=== PATIENT | male | born 1950 | race Caucasian/White ===

== ENCOUNTER 2023-10-01 14:01 | Emergency (ER) | payer OTHER, SELFPAY ==
[2023-10-01 14:06] VITALS: BP 163/81
--- NOTE | 2023-10-01 15:49 | ED.SKININJ ---
HPI-Injury
General
Chief Complaint: Skin Surface Trauma
Source: patient
Exam Limitations: none
Time Seen by Provider: 10/01/23 15:05
Nursing documentation reviewed up to this point in time: agreed with
History of Present Illness-Injury
Is this injury a work related problem?: No
Is pt an associate of [facility]?: No
Initial Injury comments:
Accidentally cut finger while cutting wound. Has lac to lateral aspect left 5th finger. Injury occurred just LITIGATION ASSISTANT
Past History
Past History
ED Past Medical History: None
ED Past Surgical History: None
Review of Systems
Review of Systems
Allergies reviewed?: Yes
All Other Systems: ROS reviewed and negative except as documented in HPI and ROS
Constitutional: Reports no symptoms
Musculoskeletal: Reports no symptoms
Skin: Reports no symptoms (laceration to left lateral 5th finger. Subungal hematoma)
Psychiatric: Reports no symptoms
Skin Exam
Laceration
Left Lateral Fifth Finger:
Length in cm: 2.5
Orientation: diagonal
Type of Laceration: simple
Any active bleeding?: low grade venous oozing
Distal skin color and temperature: normal-warm & good color
Normal distal neurovascular exam: Yes
Range of motion: full
Phy Exam
General Physical Exam
General Presentation: well appearing and no apparent distress
General age: appears stated age
General Skin: warm and dry
General Habitus: normal
General Mental: alert
Musculoskeletal Exam
Musculoskeletal Exam: full ROM and neuro vasc intact
Skin Exam
Skin Exam: normal color, warm/dry and no rash
Psychiatric Exam
Psychiatric Exam: normal mood/affect
Course
Orders/Labs/Results
Orders:
Orders
10/01/23 15:45
Cephalexin Monohydrate [Keflex] 500 mg PO NOW STA
Vital Signs
Initial and Last Documented VS:
Initial Vital Signs
Temp Pulse Resp BP Pulse Ox
98.8 F 69 18 163/81 98
10/01/23 14:06 10/01/23 14:06 10/01/23 14:06 10/01/23 14:06 10/01/23 14:06
Last Documented Vital Signs
Temp Pulse Resp BP Pulse Ox
98.8 F 69 18 163/81 98
10/01/23 14:06 10/01/23 14:06 10/01/23 14:06 10/01/23 14:06 10/01/23 14:06
Procedures
Laceration Closure
Left Lateral Fifth Finger:
Status of Wound: clean
Description of Wound Edges: sharp
Preparation: cleaned with saline and cleaned with Betadine
Anesthesia: 1% Lidocaine and Digital-Regional
Revision/Debridement: routine- no revision
Wound exploration: explored to base- no FB and no tendon involvement
Type of Closure: single layer closure
Skin Closure Material: 5-0 prolene
Nail Trepanation/Felon
Method of Drainage: nail cauterized
Sterile dressing applied: Yes
Finger splint applied: No
*Critical Care Note
Total Time (30-74mins, 75-104mins- exclusive of procedures): Not Applicable
ED Attending Note
-
Portions of this chart may have been created with voice recognition software.� Occasional wrong word or��sound alike� substitutions may have occurred due to the inherent limitations of voice recognition software.
Discharge Plan
Departure
Patient Disposition: Home (Routine Discharge)
Date of Disposition: 10/01/23
Time of Disposition: 15:46
Patient with high blood pressure during this ER visit?: No
Condition: Good
Covid-19: Not Applicable
Discharge Problem:
Finger laceration
Instructions: Laceration Repair With Stitches (DC)
Prescriptions:
New
cephalexin 500 mg capsule
500 mg PO BID 7 Days Qty: 14 0RF
Activity Restrictions/Additional Instructions:
Sutures can be removedin 7-10 days by your family doctor. Leave tape strips on until the fall off on own or your sutures are ready for removal. Tape strips can get wet in the shower.
Interventions
Interventions:
ED-Skin Assessment Last Done: 10/01/23 15:52
Discharge Date and Time
Print Language: HUNGARIAN
[2023-10-01] MEDS: KEFLEX 500 MG PO (15:51)
== END 2023-10-01 15:58 | disposition home or self-care (01) ==
LOC: EMR 14:01
PROVIDERS: EMERGENCY PHYSICIAN Emergency Medicine
DX: S61.217A Laceration without foreign body of left little finger without damage to nail, initial encounter (principal); W31.2XXA Contact with powered woodworking and forming machines, initial encounter
CPT/HCPCS: 99282; 12001

== ENCOUNTER 2023-12-21 20:56 | Inpatient (IN) | payer OTHER, SELFPAY ==
[2023-12-21] VITALS (9 sets, daily range): BP systolic 99–137; BP diastolic 60–88; BMI 25.5; BMI 28.2
[2023-12-21] MEDS: TYLENOL 650 MG PO ×2 (15:53→23:00)
[2023-12-21 16:13] LABS: Hematocrit 37.6 % (39.0-52.0); Hemoglobin 13.2 g/dL (13.0-18.0); Mean Corp Hgb Conc. 35.1 g/dL (33.0-37.0); Mean Corpuscular Hgb 29.9 pg (27.0-31.0); Mean Corpuscular Volume 85.3 fL (80.0-94.0); Mean Platelet Volume 9.4 fL (7.4-10.4); Platelet Count 193 10^3/uL (130-400); Red Blood Cell Count 4.41 10^6/uL (4.70-6.10); Red Cell Dist. Width 14.6 % (11.5-14.5); White Blood Cell Count 8.2 10^3/uL (4.8-10.8)
[2023-12-21 16:17] LABS: Erythrocyte Sed Rate 38 mm/hour (0-20)
[2023-12-21 16:24] LABS: ALT (SGPT) 103 U/L (0-50); AST (SGOT) 69 U/L (17-59); Albumin 3.9 g/dl (3.5-5.0); Alkaline Phosphatase 80 U/L (38-126); Blood Urea Nitrogen 18 mg/dl (9-20); Calcium 8.6 mg/dl (8.4-10.2); Carbon Dioxide 21 mmol/L (22-30); Chloride 100 mmol/L (98-107); Glucose 141 mg/dl (70-99); Potassium 4.3 mmol/L (3.5-5.1); Sodium 134 mmol/L (135-145); Total Protein 7.2 g/dl (6.3-8.2); eGFR > 60.00
[2023-12-21 16:25] LABS: Lactic Acid 1.5 mmol/L (0.7-2.0)
[2023-12-21 16:41] LABS: COVID-19 Antigen Negative (Negative)
--- NOTE | 2023-12-21 16:45 | ED.GENMED ---
History of Present Illness
General
Chief Complaint: Fatigue
Source: patient
Exam Limitations: none
Time Seen by Provider: 12/21/23 16:33
History of Present Illness
History of Present Illness:
73-year-old male started not feeling well 2 weeks ago. General fatigue and weakness. Some chills intermittently. Symptoms became worse today. No focal infectious symptoms. Denies cough congestion abdominal pain urinary symptoms rash etc. No
documented fever at home although had had chills
Past History
Past History
ED Past Medical History: None
ED Past Surgical History: Orthopedic
Review of Systems
Review of Systems
All Other Systems: Not applicable
Respiratory: Reports no symptoms
Cardiac: Reports no symptoms
ABD/GI: Reports no symptoms
: Reports no symptoms
Phy Exam
Physical Exam
Physical Exam:
GENERAL: Alert and oriented in no apparent distress
EYE: Orbits normal.
NECK: Supple, no significant adenopathy.
ENT: Pharynx without erythema
CARDIAC: Regular rate and rhythm without any obvious murmurs.
LUNGS: Clear breath sounds,normal
ABDOMEN: Soft, without focal tenderness or distention
NEUROLOGICAL: Alert and oriented , grossly non-focal
SKIN: Warm and dry, no rash or lesion, no discoloration, skin intact.
MUSCULOSKELETAL: No edema,no deformity.Good color
PSYCH: Normal and appropriate interaction.
Course
Orders/Labs/Results
Orders:
Orders
12/21/23 Breakfast
Regular
12/21/23 15:45
Electrocardiogram (*1) Urgent
Reason for Study: Tachycardia
12/21/23 15:46
EKG- Treatment ONCE
12/21/23 15:51
Acetaminophen [Tylenol] 650 mg PO NOW STA
12/21/23 15:56
C-Reactive Protein Urgent
COVID-19 Antigen Urgent
Source: Nasal Swab
Complete Blood Count/No Diff Urgent
Comprehensive Metabolic Panel Urgent
Erythrocyte Sed Rate Urgent
Lactic Acid Urgent
Lyme Progressive Urgent
Influenza A+B Rapid Molecular Urgent
DRAKE Source: Nasal Swab
Specimen Description:
CR Chest - 2 Views Urgent
Comment:
Reason For Exam: FEVER
12/21/23 16:44
0.9% Sodium Chloride 1000 ml [Nss] 1,000 ml IV BOLUS
Acetaminophen [Tylenol] 1,000 mg PO NOW STA
12/21/23 16:45
CT Abd/Pel (IV only)-DH only Urgent
Comment:
Reason For Exam: Fever/elevated LFTs
12/21/23 16:46
Lactic Acid Q4H
Comment: CANCEL 2nd LACTIC ACID IF 1st LACTIC ACID IS LESS THAN 2
Blood Culture Routine
DRAKE Source: Blood/Venous
Specimen Description:
Blood Culture Urgent
DRAKE Source: Blood/Venous
Specimen Description:
12/21/23 16:47
Ibuprofen [Motrin] 600 mg PO NOW STA
12/21/23 17:41
Add On- LAB Urgent
Tests Added?: procalcitonin
12/21/23 18:23
Procalcitonin Urgent
12/21/23 18:42
0.9% Sodium Chloride 500 ml [Nss] 1,000 ml IV BOLUS
12/21/23 18:48
Urinalysis Reflex To Culture Urgent
Date Specimen was Collected: 12/21/23
Time Specimen was Collected: 18:44
12/21/23 19:57
Admit/Transfer Patient As Directed
Co-Sign Provider:
Level of Care: Inpatient admission
Assign to:: Telemetry
Physician / Group: Rosy
Diagnosis: Sepsis
Reason for Telemetry: Arrhythmia
Date to Stop Telemetry: 12/24/23
Time to Stop Telemetry: 11:00
Reason for Hospitalization: IVFs, IV abx
Expected length of stay greater than two midnights?: Yes
ELOS- Estimated Length of Stay in days: 3
I certify the patient meets the requirements for IP care: Yes
Code Status As Directed
Resuscitation Status: Full Code
PRN Pain Medication Management As Directed
May give lesser potent ordered pain med per pt: Yes
preference::
Protocol:: Medication orders for pain may be administered in a
manner that supports deferring to patient preference
when the pt is:
- Requesting an ordered lesser potent pain medication.
Least to most potent pain medications are defined
as: acetaminophen < NSAID < tramadol < opioids
(morphine, oxycodone, hydromorphone).
- Requesting a lesser dose of the same medication IF
ORDERED.
- Requesting a less intrusive route of administration
if both routes are prescribed by the provider (PO <
IV).
12/21/23 20:26
Add On - Microbiology Stat
Tests Added?: blood smear parasites
12/21/23 20:30
CefTRIAXone [Rocephin] 1,000 mg IV NOW STA
Doxycycline [Vibramycin] 100 mg PO NOW STA
12/21/23 20:41
Sterile Water [Sterile Water For Injection] 10 ml IV NOW STA
12/21/23 22:10
0.9% Sodium Chloride 1000 ml [Nss] 1,000 ml IV 100 mls/hr
Acetaminophen [Tylenol] 650 mg PO Q4HPRN PRN
CefTRIAXone [Rocephin] 1,000 mg IV Q24H
Ibuprofen [Motrin] 400 mg PO Q6HPRN PRN
Ondansetron Injectable [Zofran] 4 mg IV Q6HPRN PRN
travoprost 1 drop BOTH EYES HS
12/21/23 22:10
INFECTIOUS DISEASE CONSULT Routine
Consulting Provider: Meche Tan
Was physician already notified: Yes
Activity As Directed
Activity Level: Out of Bed-Early Mobility
With Assistance
I&O [Intake/ Output] As Directed
Frequency: q12h
Vital Signs As Directed
Frequency: Per unit guidelines
Weight As Directed
Frequency: Daily
DX Deep Vein Thrombosis Video Routine
12/22/23 06:00
Complete Blood Count/No Diff IN AM
Creatine Phosphokinase IN AM
12/22/23 08:00
Doxycycline [Vibramycin] 100 mg PO Q12
12/22/23 18:00
Enoxaparin Sodium [Lovenox] 40 mg SC QPM
12/24/23 11:00
DC Protocol for Telemetry ONCE
Abnormal Lab Results
12/21/23 12/21/23
15:56 18:23
RBC 4.41 L 10^6/uL
(4.70-6.10)
Hct 37.6 L %
(39.0-52.0)
RDW 14.6 H %
(11.5-14.5)
ESR 38 H mm/hour
(0-20)
Sodium 134 L mmol/L
(135-145)
Carbon Dioxide 21 L mmol/L
(22-30)
Glucose 141 H mg/dl
(70-99)
AST 69 H U/L
(17-59)
ALT 103 H U/L
(0-50)
C-Reactive Protein 168.00 H mg/L
(0.0-10.00)
Procalcitonin 0.89 H ng/ml
(0.0-0.25)
12/21/23 15:56
12/21/23 15:56
Vital Signs
Initial and Last Documented VS:
Initial Vital Signs
Temp Pulse Resp BP Pulse Ox
103.0 F H 120 18 125/80 96
12/21/23 15:42 12/21/23 15:42 12/21/23 15:42 12/21/23 15:42 12/21/23 15:42
Last Documented Vital Signs
Temp Pulse Resp BP Pulse Ox
98.3 F 79 21 112/71 94
12/21/23 21:34 12/21/23 21:32 12/21/23 21:32 12/21/23 21:32 12/21/23 21:32
*Radiology
Radiology exam reviewed: preliminary read by ED provider (Negative x-ray) and radiology read reviewed (No acute findings on CT)
*Pulse Oximetry
Patient hypoxic: no
*Critical Care Note
Total Time (30-74mins, 75-104mins- exclusive of procedures): Not Applicable
Update Note
Update Note:
No obvious explanation for patient's fever. However his symptoms for 10 days. He had significant fever here. Elevated procalcitonin. Elevated inflammatory markers. Warrants inpatient management
ED Attending Note
-
Portions of this chart may have been created with voice recognition software.� Occasional wrong word or��sound alike� substitutions may have occurred due to the inherent limitations of voice recognition software.
Discharge Plan
Departure
Patient Disposition: Admit
Date of Disposition: 12/21/23
Time of Disposition: 19:32
Presentation/result/management discussed w/ accepting MD/DO: Hospitalist
Discharge Problem:
Persistent fever, Unknown etiology
Interventions
Interventions:
*Risk Screen - Suicide Last Done: 12/21/23 15:40
*General Assessment Last Done: 12/21/23 15:42
*Neglect/Abuse Screening Last Done: 12/21/23 16:45
ED- Fall Risk Assessment Last Done: 12/21/23 16:43
*ED COVID-19 Vaccine History Last Done: 12/21/23 16:43
[2023-12-21] MEDS: NSS 1000 IV ×3 (16:50→22:41)
[2023-12-21] MEDS: MOTRIN 600 MG PO (17:01)
[2023-12-21 17:14] LABS: Lactic Acid 1.7 mmol/L (0.7-2.0)
--- NOTE | 2023-12-21 17:30 | EDRN ---
Pt in CT at this time.
--- NOTE | 2023-12-21 18:24 | EDRN ---
Procalcitonin redrawn and sent.
--- NOTE | 2023-12-21 18:28 | EDRN ---
Pt informed urine spec needed. Procalcitonin drawn and sent. Dr. Aguiar was just in to see pt.
[2023-12-21 18:54] LABS: Urine Albumin Trace (Neg - Trace); Urine Bilirubin Negative (Negative); Urine Character Clear (Clear); Urine Color Yellow; Urine Glucose Negative (Negative); Urine Ketone Negative (Negative); Urine Leukocyte Negative (Negative); Urine Nitrite Negative (Negative); Urine Occult Blood Negative (Negative); Urine Urobilinogen 1+ (Neg - 1+)
[2023-12-21 18:59] LABS: Procalcitonin 0.89 ng/ml (0.0-0.25)
--- NOTE | 2023-12-21 19:00 | EDRN ---
Dr. Aguiar in room w/ pt at this [facility].
--- NOTE | 2023-12-21 19:53 | HPS.HSE ---
Family Physician
-
Family Physician: * NONE
Chief Complaint
-
Fatigue, Weakness and Chills
History of Present Illness
Patient is a 73 y/o male without significant past medical history who presents with weakness and fatigue. Patient reports symptoms started about 10 days ago after he returned home from a trip to [place]. He notes about 7 days ago he had an episode
of severe rigors, and has been experiencing intermittent episodes of chills. Symptoms worsened today prompting him to present to the emergency department for evaluation where he was found to have a temp of 103F. Patient reports many mosquito bites
during his recent trip to [place], but denies any known tick bites. He denies any rashes or joint pains. He denies cough, shortness of breath, abdominal pain, nausea, vomiting, diarrhea or urinary symptoms.
Medical History
Past Medical History
Past Medical History: Reports Other
Additional Past Medical History:
Glaucoma
Past Surgical History: Reports Other
Additional Past Surgical History:
Left Hip Replacement
Social History
Tobacco: Former Smoker (Quit over 40 years)
Alcohol: Occasional
Drug: None
Family History
Family History: Not pertinent
Allergies / Home Medications
Allergies reflects when Allergies were last updated in Sp[facility].
Home Medications with original date entered in Spool
Allergy/Medication List:
Allergies
Allergy/AdvReac Type Severity Reaction Status Date / Time
No Known Allergies Allergy Verified 12/21/23 15:42
Home Medications
acetaminophen 500 mg tablet (Tylenol Extra Strength) 1,000 mg PO Q6HPRN PRN mild pain 12/21/23
eusinxyk-chg-vwebb 150 mcg-vit K1 30 mcg-lycop 300 mcg-lutein tablet (Centrum Minis Men 50 Plus) 1 tab PO HS 12/21/23
travoprost 0.004 % eye drops 1 drp BOTH EYES HS 12/21/23
Review of Systems
-
A 12 point ROS was completed and negative except as noted: Yes
Constitutional: Reports Fever, Fatigue and Chills
Respiratory: Denies Cough or Trouble Breathing
Cardiac: Denies Chest Pain or Palpitations
Abdomen/GI: Denies Abdominal Pain, Nausea, Vomiting or Diarrhea
: Denies Dysuria or Frequency
Skin: Denies Rash
Neurological: Reports Weakness (Generalized)
Physical Exam
Vital Signs
Vital Signs
Temp Pulse Resp BP Pulse Ox
99.7 F 78 22 111/65 94
12/21/23 18:20 12/21/23 19:15 12/21/23 19:15 12/21/23 19:00 12/21/23 19:15
Physical Exam
General: Comfortable and Conversant
HEENT: Anicteric, Moist mucous membranes and Neck Nontender (Supple; Negative Brudzinski sign)
Respiratory: Clear and Non Labored Respirations
Cardiac: S1/S2 and Regular Rhythm
GI: Soft and Non Tender
Rectal: Deferred by Provider
Genito-urinary: Clear Urine
Musculoskeletal: No Clubbing, No Cyanosis and No Edema
Skin: Warm and Dry
Neuro: Awake, Alert, Oriented and Nonfocal/grossly intact
Psych: Calm
Laboratory Results
-
12/21/23 15:56
12/21/23 15:56
Laboratory Results
Lactic Acid Cancelled 12/21/23 20:45
Total Bilirubin 1.0 mg/dl (0.2-1.3) 12/21/23 15:56
AST 69 U/L (17-59) H 12/21/23 15:56
ALT 103 U/L (0-50) H 12/21/23 15:56
Alkaline Phosphatase 80 U/L (38-126) 12/21/23 15:56
Chest X-Ray:
1. No radiographic evidence for pneumonia.
2. Mild bilateral lung hyperinflation.
3. Mild scarring in both lower lungs.
Abdomen/Pelvis CT Scan:
1. Mild diffuse hepatic steatosis.
2. Severe colonic diverticulosis.
3. Multiple duodenal diverticula.
4. Mildly enlarged prostate gland.
5. Fusiform infrarenal abdominal aortic aneurysm (3.1 cm AP dimension).
6. Severe multilevel lumbar discogenic degenerative disease.
7. 4.5 mm solid right lower lobe pulmonary nodule.
Data Reviewed
-
Diagnostic Radiology: Report Reviewed by me
CT Scan: Report Reviewed by me
Lab Data: Labs Reviewed by me
Impression/Plan
-
SIRS (fever, tachycardia), however source of infection remains unclear
-Consult Infectious Disease
-Start empiric doxycycline and ceftriaxone
-Check blood smear for parasites
-Await blood cultures
-Await Lyme serologies
DVT proph: SCDs
Code Status: Full Code
--- NOTE | 2023-12-21 20:19 | W.PN.UPDATE ---
Update Note
Progress Note Update
Patient seen with TRAILER RENTAL CLERK. Concur with findings on history and physical exam. I agree with the assessment and plan as stated unless otherwise specified.
This is a 73-year-old male with no significant past medical history presenting to the emergency department with about 10 days of fever and fatigue.
Patient reports sudden onset of symptoms about 10 days ago without no prodromal signs. Reports that he will suddenly feel weak having to sit down and rest and then breaks out in a sweat. He does not measure his temperatures frequently at home but
he does have this intermittent fevers. This lasted about 1 hour and then the symptoms resolved and he feels better. In terms of localization the patient reports a mild frontal headache just about the eyes. He denies any neck stiffness or pain.
He denies any coughing wheezing shortness of breath. Patient denies having any chest pain. He denies any abdominal pain nausea or vomiting. He denies having any diarrhea. He has not had any rash. He denies any new joint redness swelling
tenderness no pain. He denies any new focal back pain, weakness of the extremities or numbness. He denies any urinary symptoms including flank pain, dysuria hematuria or incontinence.
Patient reports recently traveling to the ER but otherwise no recent travels. He has no known sick contacts at home he is retired. He does report occasional mosquito bites while he was in [place]. Patient denies any new medications. He denies
history of IV drug use or incarceration.
In the emergency room the patient has temperature of 103, was tachycardic to 109 on ECG. Blood pressure was 111/65 oxygen saturation was 98% on room air with a respiratory rate of 22. CT of the abdomen and pelvis was unremarkable except for known
diverticulosis. CBC shows a white count of 8.2 no differential yet. Chemistries are within normal limits as of a sodium of 134. CRP was elevated at 168, ESR elevated at 38, procalcitonin was also 0.89. His urinalysis was clear. COV 19 negative.
Physical exam is benign as per TRAILER RENTAL CLERK note.
Fever of unknown origin - Non-focal history and exam. CT abd/pelvis negative. Chest Xray negative. No focal neurological deficits, headaches or neck stiffness. No h/o immunosuppression, malignancy, IV drug use or HIV. Very high fevers and
elevated CRP suggestive active inflammatory response to atypical infection, tick borne illness vs indolent infection though no obvious signs of endocarditis (ESR also not markedly elevated).
- admit to med/surg
- blood cultures sent, viral panel negative
- lyme titers
- blood smear for parasites
- additional serological testing for HME/HGA per ID
- ceftriaxone/doxycycline for now
- ID consult
DVT PPX - enoxaparin
Full Code
--- NOTE | 2023-12-21 20:20 | EDRN ---
Erendira MACIAS in room w/pt at this time.
[2023-12-21] MEDS: VIBRAMYCIN 100 MG PO (21:13)
[2023-12-21] MEDS: ROCEPHIN 1000 MG IV (21:14)
[2023-12-21] MEDS: STERILE WATER FOR INJECTION 10 ML IV (21:14)
[2023-12-21] MEDS: XALATAN OPHTHALMIC SOLUTION 1 DROP BOTH EYES (22:42)
[2023-12-22] VITALS (9 sets, daily range): BP systolic 90–147; BP diastolic 54–73; BMI 28.1
--- NOTE | 2023-12-22 00:27 | PTCARENOTE ---
Pt transported to 3W from ED via stretcher. Pt independent from stretcher to bed, vitals obtained, pt febrile 100.0, AAOX3, oriented to room and call moss within reach. Will continue to monitor.
[2023-12-22] MEDS: VIBRAMYCIN 100 MG PO ×2 (08:04→20:05)
[2023-12-22 08:28] LABS: Hematocrit 33.4 % (39.0-52.0); Hemoglobin 11.4 g/dL (13.0-18.0); Mean Corp Hgb Conc. 34.1 g/dL (33.0-37.0); Mean Corpuscular Hgb 29.5 pg (27.0-31.0); Mean Corpuscular Volume 86.3 fL (80.0-94.0); Mean Platelet Volume 10.2 fL (7.4-10.4); Platelet Count 176 10^3/uL (130-400); Red Blood Cell Count 3.87 10^6/uL (4.70-6.10); Red Cell Dist. Width 15.1 % (11.5-14.5); White Blood Cell Count 8.3 10^3/uL (4.8-10.8)
[2023-12-22 08:58] LABS: Creatine Phosphokinase 163 U/L (55-170)
[2023-12-22] MEDS: NSS 1000 IV ×2 (09:30→20:05)
--- NOTE | 2023-12-22 13:54 | W.PN.HOSP.TC ---
Today's Communication/Plan
-
see plan
Assessment / Plan
Assessment / Plan
Assessment:
SIRS (fever, tachycardia), however source of infection remains unclear
- consulted ID; tick borne illness and parasite screen pending
- empiric Josh Castro, day 1
- follow cultures
- patient reports he is concerned of mosquito borne illnesses; check west nile virus IgM; defer to ID for additional testing
DVT proph: SCDs
Code Status: Full Code
Anticipated Discharge: 24 - 48 hours
Subjective/Interval History
-
Date of Service: December 22, 2023
low grade temps
overall feeling better
Objective Data
-
Labs:
Laboratory Results
12/22/23
06:25
WBC 8.3
Hgb 11.4 L
Hct 33.4 L
Plt Count 176
Vital Signs:
Vital Signs
Temp Pulse Resp BP Pulse Ox
97.5 F 61 22 147/65 99
12/22/23 11:08 12/22/23 11:08 12/22/23 11:08 12/22/23 11:08 12/22/23 11:08
I&O
12/21/23 12/22/23 12/23/23
06:59 06:59 06:59
Intake Total 480 / 480
Output Total
Balance 479 / 479
Physical Exam
-
General: No Apparent Distress
HEENT: Normocephalic and Atraumatic
Respiratory: Negative Wheezes
Cardiac: Regular Rhythm and S1/S2
GI: Soft
Genito-urinary: No Costovertebral Tender
Musculoskeletal: No Edema
Neuro: AO x 3
Psych: Calm
Data Reviewed
-
Total Time Spent with Patient (in minutes): 41
Labs: Labs Reviewed by me
--- NOTE | 2023-12-22 14:26 | CON.ID ---
Consultation
-
Date/Time Consultation Requested: 12/21/23 22:10
Date/Time Consultation Performed: 12/22/23 14:27
Requesting Provider: juliet contreras
Performing Provider: tori osman
Reason for Consultation: fever without apparent source
Chief Complaint / Past History
Chief Complaint
Fatigue, Weakness and Chills
History of Present Illness
Mr Obrien is a 73 year old male with history of L hip replacement presenting here for a 10 days of fevers and chills. Symptoms began while visiting [facility]. Denies: cough, shortness of breath, abdominal pain, nausea, vomiting, diarrhea, urinary
symptoms, rashes or joint pains. Reports many mosquito bites but no tick bites. Did not seek medical care prior to this visit.
Since arrival here he was initially febrile to 103.0 but has now been afebrile almost 24 hours, bp overall stable with intermittent mild hypotension, pulse mostly in the 70s, wbc on arrival 8.2, hgb 13.2, plt 193, esr 38, cr 0.8, na 134, lactic acid
initially 1.5, t bili 1.0, ast 69, alt 103, ua no pyuria, acute lyme serologies in progress, [place] IgM sent, covid ag negative, CXR: no evidence of pneumonia, CT a/p hepatic steasosis, diverticulosis without diverticulitis, AAA, solid rll
pulmonary nodule (nodule advisory board to follow), blood cultures x2 no growth to date, influenza screen negative, babesia smear cancelled and reordered. Currently on ceftriaxone and doxycycline at my recommendation
Past History
Additional Past Medical History:
Glaucoma
Additional Past Surgical History:
L THR
Allergy History:
No Known Allergies Allergy (Verified 12/21/23 15:42)
Medications Reviewed: Yes
Social History
Tobacco: Former Smoker
Alcohol: Occasional
Drug: None
Family History
Family History: Not Pertinent
Review of Systems
Review of Systems
General: Fever and Chills
All systems: All other systems were reviewed and were negative
Vital Signs
Temp Pulse Resp BP Pulse Ox
97.5 F 61 22 147/65 99
12/22/23 11:08 12/22/23 11:08 12/22/23 11:08 12/22/23 11:08 12/22/23 11:08
Physical Exam
Physical Exam
Constitutional: No Acute Distress
Cardiovascular: Regular Rate and S1/S2; Negative Murmur or Rub
Pulmonary: Clear and Symmetric; Negative Wheezes, Rales or Rhonchi
Gastrointestinal: Soft, Non Tender, Non Distended and Normal Bowel Sounds
Skin: Warm and Dry; Negative Rash or Jaundice
Lab / Diagnostic Study Results
12/22/23 06:25
ESR 38 mm/hour (0-20) H 12/21/23 15:56
Lactic Acid Cancelled 12/21/23 20:45
C-Reactive Protein 168.00 mg/L (0.0-10.00) H 12/21/23 15:56
Procalcitonin 0.89 ng/ml (0.0-0.25) H 12/21/23 18:23
Microbiology Results
Micro:
12/21/23 16:46 Blood Culture - Pending
Blood/Venous
12/21/23 16:46 Blood Culture - Pending
Blood/Venous
12/21/23 15:56 Influenza Types A & B (SONYA) - Final
Nasal Swab Negative for Influenza A & B, NAAT
Negative results must be combined with clinical observations
and patient history.
Nucleic Acid Amplification test (NAAT)performed on the
[employer] platform.
Assessment / Plan
Fever without a clear source - resolving
- blood cultures x2 in progress - no growth to date
- ua negative
- influenza not yet transmitting at significant levels in the continental [place] - negative
- CXR without infiltrates - unlikely to be related to dust inhalation
- [place] igm was sent
- acute lyme serology was sent
- reviewed possibility of send out diagnostic work up for tick born/flea born illnesses, however slow turn around time and unlikely to affect management if already clinically resolving
- agree with ceftriaxone and doxycycline
- follow clinically over night, if no further fevers and not bacteremic than can discharge with a two week course of doxycycline
Care Review
Plan reviewed with: Physician (Dr Cheung - larry cope)
[2023-12-22 15:38] LABS: ALT (SGPT) 65 U/L (0-50); AST (SGOT) 64 U/L (17-59); Albumin 2.8 g/dl (3.5-5.0); Alkaline Phosphatase 63 U/L (38-126); Blood Urea Nitrogen 12 mg/dl (9-20); Calcium 7.2 mg/dl (8.4-10.2); Carbon Dioxide 20 mmol/L (22-30); Chloride 109 mmol/L (98-107); Estimated Creatinine Clearance 88 ml/min; Glucose 112 mg/dl (70-99); Potassium 4.1 mmol/L (3.5-5.1); Sodium 138 mmol/L (135-145); Total Bilirubin 0.5 mg/dl (0.2-1.3); Total Protein 5.7 g/dl (6.3-8.2); eGFR > 60.00
[2023-12-22] MEDS: LOVENOX 40 MG SC (17:38)
[2023-12-22] MEDS: ROCEPHIN 1000 MG IV (21:07)
[2023-12-22] MEDS: XALATAN OPHTHALMIC SOLUTION BOTH EYES ×2 (21:07→21:10)
[2023-12-22] MEDS: STERILE WATER FOR INJECTION 10 ML IV (21:07)
[2023-12-23 03:50] VITALS: BP 117/74
[2023-12-23 06:07] VITALS: BMI 28.8
[2023-12-23] MEDS: NSS IV (06:29)
[2023-12-23] MEDS: VIBRAMYCIN 100 MG PO (07:14)
[2023-12-23 07:26] LABS: Hematocrit 33.3 % (39.0-52.0); Hemoglobin 11.4 g/dL (13.0-18.0); Mean Corp Hgb Conc. 34.2 g/dL (33.0-37.0); Mean Corpuscular Hgb 31.1 pg (27.0-31.0); Mean Corpuscular Volume 90.7 fL (80.0-94.0); Mean Platelet Volume 10.5 fL (7.4-10.4); Platelet Count 171 10^3/uL (130-400); Red Blood Cell Count 3.67 10^6/uL (4.70-6.10); Red Cell Dist. Width 15.1 % (11.5-14.5); White Blood Cell Count 6.3 10^3/uL (4.8-10.8)
[2023-12-23 07:43] VITALS: BP 131/77
[2023-12-23 07:47] LABS: ALT (SGPT) 62 U/L (0-50); AST (SGOT) 55 U/L (17-59); Albumin 2.9 g/dl (3.5-5.0); Alkaline Phosphatase 62 U/L (38-126); Blood Urea Nitrogen 13 mg/dl (9-20); Calcium 7.9 mg/dl (8.4-10.2); Carbon Dioxide 21 mmol/L (22-30); Chloride 109 mmol/L (98-107); Estimated Creatinine Clearance 78 ml/min; Glucose 94 mg/dl (70-99); Potassium 4.5 mmol/L (3.5-5.1); Sodium 140 mmol/L (135-145); Total Bilirubin 0.4 mg/dl (0.2-1.3); Total Protein 5.9 g/dl (6.3-8.2); eGFR > 60.00
--- NOTE | 2023-12-23 10:34 | W.PN.ID1 ---
Date of Service
Date of Service: December 23, 2023
Today's Communication
- continue doxycycline to complete a 2 week course
- stable for dc from ID perspective
Assessment / Plan
Fever without a clear source - resolved
- fevers and leukocytosis resolved
- blood cultures x2 in progress - no growth to date
- [place] igm was sent - pending
- acute lyme serology was sent - pending
- reviewed possibility of send out diagnostic work up for tick born/flea born illnesses, however slow turn around time and unlikely to affect management if already clinically resolving
- continue doxycycline to complete a 2 week course
- stable for dc from ID perspective
Chief Complaint
-: Fever
Subjective / Review of Systems
no further fevers
bp stable
no events overnight
Vital Signs / Physical Exam
Vital Signs
Vital Signs
Temp Pulse Resp BP Pulse Ox
98.7 F 78 22 131/77 99
12/23/23 07:43 12/23/23 07:43 12/23/23 07:43 12/23/23 07:43 12/23/23 07:43
Physical Exam
Constitutional: No Acute Distress
Cardiovascular: Regular Rate and S1/S2; Negative Murmur or Rub
Pulmonary: Clear and Symmetric; Negative Wheezes or Rales
Gastrointestinal: Soft, Non Tender, Non Distended and Normal Bowel Sounds
Skin: Warm and Dry; Negative Rash or Jaundice
Objective Data
Lab Data
Lab Results
12/23/23 06:01
12/23/23 06:01
ESR 38 mm/hour (0-20) H 12/21/23 15:56
Estimated Creat Clear 78 ml/min 12/23/23 06:01
Lactic Acid Cancelled 12/21/23 20:45
Total Bilirubin 0.4 mg/dl (0.2-1.3) 12/23/23 06:01
AST 55 U/L (17-59) 12/23/23 06:01
ALT 62 U/L (0-50) H 12/23/23 06:01
Alkaline Phosphatase 62 U/L (38-126) 12/23/23 06:01
C-Reactive Protein 168.00 mg/L (0.0-10.00) H 12/21/23 15:56
Most recent labs reviewed.
Micro Results:
12/22/23 14:13 Blood Parasites Smear - Preliminary
Blood/Venous No blood parasites seen.
12/21/23 16:46 Blood Culture - Preliminary
Blood/Venous No Growth in 24 hours- Final report to follow
12/21/23 16:46 Blood Culture - Preliminary
Blood/Venous No Growth in 24 hours- Final report to follow
12/21/23 15:56 Influenza Types A & B ([facility]) - Final
Nasal Swab Negative for Influenza A & B, NAAT
Negative results must be combined with clinical observations
and patient history.
Nucleic Acid Amplification test (NAAT)performed on the
[employer] platform.
Care Review
Plan reviewed with: Physician (Dr Jonatan higginbotham)
--- NOTE | 2023-12-23 11:22 | W.PN.HOSP.TC ---
Today's Communication/Plan
-
dc to home
Assessment / Plan
Assessment / Plan
Assessment:
SIRS (fever, tachycardia), however source of infection remains unclear
- appreciate ID recs
- bacterial cultures negative
- acute Lyme panel pending
- [place] IGM pending
- DC on Doxy x 2 weeks
DVT proph: SCDs
Code Status: Full Code
More than 30 minutes spent in discharge including
Final examination of the patient
Summarizing hospital stay
Instructions for continuing care to all relevant caregivers
Preparation of discharge records, prescriptions, and referral forms
Total time spent (in minutes): 41
Anticipated Discharge: Today
Subjective/Interval History
-
Date of Service: December 23, 2023
no fevers
vitals stables
Bcx NGTD
patient feels well, eager for home
Objective Data
-
Labs:
Laboratory Results
12/23/23
06:01
WBC 6.3
Hgb 11.4 L
Hct 33.3 L
Plt Count 171
Sodium 140
Potassium 4.5
Chloride 109 H
Carbon Dioxide 21 L
BUN 13
Creatinine 0.9
Glucose 94
Calcium 7.9 L
Total Bilirubin 0.4
AST 55
ALT 62 H
Alkaline Phosphatase 62
Vital Signs:
Vital Signs
Temp Pulse Resp BP Pulse Ox
98.7 F 78 22 131/77 99
12/23/23 07:43 12/23/23 07:43 12/23/23 07:43 12/23/23 07:43 12/23/23 07:43
I&O
12/22/23 12/23/23 12/24/23
06:59 06:59 06:59
Intake Total 480 / 480 820 / 820
Output Total
Balance 479 / 479 820 / 820
Physical Exam
-
General: No Apparent Distress
HEENT: Normocephalic and Atraumatic
Respiratory: Negative Wheezes
Cardiac: Regular Rhythm and S1/S2
GI: Soft
Musculoskeletal: No Edema
Neuro: AO x 3
Hematologic / Lymphatic: No Lymphadenopathy
Psych: Calm
Data Reviewed
-
Total Time Spent with Patient (in minutes): 41
Labs: Labs Reviewed by me
--- NOTE | 2023-12-23 11:28 | W.DS.TRANS ---
DC Summary - [employer]
-
Discharge Instructions:
Discharge Diagnosis/Procedures Fevers
Diet Regular
Activity As tolerated
Instructions:
Stand-Alone Forms:
Changes to Home Medications: No
Discharge Medications:
DC Medications w/original date entered in [facility]
acetaminophen 500 mg tablet (Tylenol Extra Strength) 1,000 mg PO Q6HPRN PRN mild pain 12/21/23
[id number]-[id number]-syugb 150 mcg-vit K1 30 mcg-lycop 300 mcg-lutein tablet (Centrum Minis Men 50 Plus) 1 tab PO HS Supplement 12/21/23
travoprost 0.004 % eye drops 1 drp BOTH EYES HS Eye Condition 12/21/23
doxycycline hyclate 100 mg capsule 100 mg PO Q12 #28 caps 12/23/23
Home Medication Changes
Pending Results: No
Total time spent discharging patient (in min): 41
--- NOTE | 2023-12-23 12:52 | CM ---
Reviewed chart, met with patient to obtain information for assessment. Patient stated that he lives with his in a two story home with one step to enter. He described himself as independent with his ADLs, personal care, bathing and dressing. He
ambulates independently. 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
He denied any DME.
He has never had VN.
Patient has not been to a SNF.
Patient has a prescription plan and uses, [facility] [place] for all of his medications.
His PCP is, not listed.
Provided IMM as patient has been discharged. His will provide transportation home.
Plan: Case management will continue to follow and assist with discharge planning. Home.
[2023-12-24 11:23] LABS: Lyme Antibody Screen, EIA Presump. Positive (Negative)
[2023-12-26 08:02] LABS: West Nile Virus, IgM, Serum 0.04 IV (<=0.89)
== END 2023-12-23 13:00 | disposition home or self-care (01) | DRG 864 ==
LOC: 3 WEST ACU 20:56
PROVIDERS: Emergency Medicine; Physician Assistant Medical; ADMITTING PHYSICIAN Internal Medicine; ATTENDING PHYSICIAN Internal Medicine; CONSULT PHYSICIAN Student in an Organized Health Care Education/Training Program; EMERGENCY PHYSICIAN Emergency Medicine
DX: R50.9 Fever, unspecified (principal); R65.10 Systemic inflammatory response syndrome (SIRS) of non-infectious origin without acute organ dysfunction; W57.XXXA Bitten or stung by nonvenomous insect and other nonvenomous arthropods, initial encounter; R53.83 Other fatigue; R68.89 Other general symptoms and signs; R53.1 Weakness; Z96.642 Presence of left artificial hip joint; Z87.891 Personal history of nicotine dependence; Y93.89 Activity, other specified; Y92.9 Unspecified place or not applicable; Z11.52 Encounter for screening for COVID-19
CPT/HCPCS: 71046; 74177; 80053; 81003; 82550; 83605; 84145; 85027; 85652; 86140; 86617; 86618; 86788; 87015; 87040; 87207; 87502; 87811; 93005; 96360; 96361; 99285; Q9967